=== PATIENT | female | born 1985 | race Caucasian/White ===

== ENCOUNTER → 2016-04-05 | Outpatient (CLI) | payer OTHER ==
[2016-04-05 09:50] LABS: CHCM 34.4; HCT 36.7 % (34.0-46.0); HDW 3.09; HGB 12.4 gm/dL (11.4-16.0); MCH 29.8 pg (25.0-35.0); MCHC 33.9 g/dL (31.0-37.0); MCV 87.9 fL (80.0-100.0); Mean Platelet Volume 6.2; RBC 4.17 m/uL (3.80-5.40); RDW 13.9 % (11.5-15.5); WBC 10.2 k/uL (3.8-10.6)
== END | disposition home or self-care (01) ==
LOC: LABWHC1 08:23
PROVIDERS: ATTEND Obstetrics & Gynecology
DX: Z34.92 Encounter for supervision of normal pregnancy, unspecified, second trimester (principal); Z3A.00 Weeks of gestation of pregnancy not specified
CPT/HCPCS: 36415; 82950; 85027

== ENCOUNTER → 2016-04-11 | Outpatient (CLI) | payer OTHER ==
[2016-04-11 12:40] LABS: Glucose 3 Hour, Gest 96 mg/dL
== END | disposition home or self-care (01) ==
LOC: LABWHC1 08:24
PROVIDERS: ATTEND Obstetrics & Gynecology
DX: O24.419 Gestational diabetes mellitus in pregnancy, unspecified control (principal); Z3A.00 Weeks of gestation of pregnancy not specified
CPT/HCPCS: 36415; 82951; 82952

== ENCOUNTER 2016-05-30 15:08 | Outpatient (CLI) | payer OTHER ==
[2016-05-30 15:55] LABS: Appearance,Urine Cloudy (Clear); Bacteria,Urine Occasional /hpf; Bilirubin,Urine Negative (Negative); Glucose,Urine (UA) Negative (Negative); Ketones,Urine Negative (Negative); Leukocyte Esterase,Urine Moderate (Negative); Mucus,Urine Rare /hpf; Nitrite,Urine Negative (Negative); PH, Urine 6.5 (5.0-8.0); Particle Count 9996; Protein,Urine 1+ (Negative); RBC,Urine 2 /hpf (0-5); Squamous Epithelial Cell,Urine 13 /hpf (0-4); UA Billing (MACRO vs. MICRO) MICRO; WBC,Urine 11 /hpf (0-5)
--- NOTE | 2016-05-30 17:12 | US ---
EXAMINATION TYPE: US OB >= 14 wk fetus DATE OF EXAM: 05/30/2016 4:47 PM COMPARISON: on PACS CLINICAL HISTORY: vaginal bleeding spotting TECHNIQUE: Transabdominal (TA) GESTATIONAL AGE / DATING Dates by First Scan: (32 weeks/6 days) EDC: 07/19/2016 Dates by Current Scan: (31 weeks/6 days) EDC: 07/26/2016 SURVEY IUP: Single PLACENTA: Anterior PREVIA: No Previa KELSEY: 15.9 cm Normal CERVICAL LENGTH (transabdominal: norm > 3.0cm): 3.4 cm BIOMETRY PRESENTATION: Vertex LIE: Longitudinal BPD: 8.4 cm 33 weeks / 5 days HC: 31.0 cm 34 weeks / 4 days AC: 28.2 cm 32 weeks / 1 days FL: 5.8 cm 30 weeks / 1 days ESTIMATED WEIGHT IN GRAMS: 1869 grams ESTIMATED WEIGHT IN LBS/OZS: 4 lbs. 2 oz. WEIGHT PERCENTAGE BASED ON ESTABLISHED DATES: 16.5% HC/AC: 1.1 FL/AC: 20.5 HEART RATE: 131 bpm RHYTHM: Normal TECHNOLOGIST IMPRESSION: Live IUP measuring 31 weeks 6 days. IMPRESSION: Allowing for error of measurement there is satisfactory growth compared to 02/09/2016. I see no compli cating process.
== END 2016-05-30 16:58 | disposition home or self-care (01) ==
LOC: FBPOP 15:08
PROVIDERS: ATTEND Obstetrics & Gynecology
DX: O26.893 Other specified pregnancy related conditions, third trimester (principal); Z3A.32 32 weeks gestation of pregnancy; N93.9 Abnormal uterine and vaginal bleeding, unspecified
CPT/HCPCS: 59025; 81001; 76805; G0463; 99213

== ENCOUNTER 2016-07-02 10:42 | Inpatient (IN) | payer OTHER ==
[2016-07-02] MEDS ORDERED: CITRIC ACID-SODIUM CITRATE 15 ML CUP PO ONE (11:26)
[2016-07-02] MEDS ORDERED: ceFAZolin 2 GM in SODIUM CHLORIDE 0.9% 100 ML IVPB ONE (11:26)
--- NOTE | 2016-07-02 11:35 | P.HPOB ---
History of Present Illness H&P Date: 07/02/16 Chief Complaint: elevated dopplers, variables on NST 29 presented to triage at 37 weeks 2 days for NST. She has been followed with [facility] for her gestational diabetes A1. Her Dopplers were starting to be elevated and so she was followed more closely. NST today shows heart tones to be 125 - 130 with moderate variability and reactive but there are some variable decelerations to the 100s lasting about 40 seconds good return to baseline. The maternal medicine specialist had recommended delivery between 37 and 38 weeks. There is no reason to wait considering the variables on the heart rate strip so we will plan for section for today. Review of Systems All systems: negative Constitutional: Denies chills, Denies fever Eyes: denies blurred vision, denies pain Ears, nose, mouth and throat: Denies headache, Denies sore throat Cardiovascular: Denies chest pain, Denies shortness of breath Respiratory: Denies cough Gastrointestinal: Denies abdominal pain, Denies diarrhea, Denies nausea, Denies vomiting Genitourinary: Denies dysuria, Denies hematuria Musculoskeletal: Denies myalgias Integumentary: Denies pruritus, Denies rash Neurological: Denies numbness, Denies weakness Psychiatric: Denies anxiety, Denies depression Endocrine: Denies fatigue, Denies weight change Past Medical History Past Medical History: No Reported History Additional Past Medical History / Comment(s): Obstetrics history: She has had one previous section. This she has been followed with me since her first trimester and with M since the second trimester due to gestational diabetes. History of Any Multi-Drug Resistant Organisms: None Reported Past Surgical History: Section Past Psychological History: Anxiety Smoking Status: Former smoker Past Alcohol Use History: None Reported Past Drug Use History: None Reported Medications and Allergies Home Medications Medication Instructions Recorded Confirmed Type Pnv with Ca,No.72/Iron/FA 1 tab PO DAILY 12/08/15 05/30/16 History [ Plus Tablet] Allergies Allergy/AdvReac Type Severity Reaction Status Date / Time No Known Allergies Allergy Verified 05/30/16 15:20 Exam Osteopathic Statement: *. No significant issues noted on an osteopathic structural exam other than those noted in the History and Physical/Consult. - Vital Signs Vital signs: Intake and Output 07/01/16 07/02/16 07/02/16 22:59 06:59 14:59 Other: Weight 89.811 kg Patient Weight 07/03/16 06:59 Weight 89.811 kg Heart: Regular rate and rhythm Lungs: Clear to auscultation bilaterally Abdomen: Soft, nontender Extremities: Negative Homans sign Assessment and Plan (1) Gestational diabetes mellitus, class A1 Status: Acute (2) Non-reassuring heart tones complicating , antepartum Status: Acute (3) Family planning Status: Acute (4) Previous section Status: Acute Plan: 1. Plan for repeat section with tubal ligation
[2016-07-02 12:21] LABS: Glucose,Whole Blood 78 mg/dL (75-99)
[2016-07-02 12:38] VITALS: BMI 37.4
[2016-07-02 13:17] LABS: Basophils % (A) 0 %; CH 28.8; CHCM 33.7; Eosinophils % (A) 0 %; HCT 37.7 % (34.0-46.0); HDW 3.09; HGB 12.4 gm/dL (11.4-16.0); Luc # (Auto) 0.26; Luc % (Auto) 3; Lymphocytes # (A) 1.2 k/uL (1.0-4.8); Lymphocytes % (A) 15 %; MCH 28.1 pg (25.0-35.0); MCHC 32.8 g/dL (31.0-37.0); MCV 85.7 fL (80.0-100.0); Mean Platelet Volume 7.1; Monocytes # (A) 0.4 k/uL (0-1.0); Monocytes % (A) 5 %; Neutrophils # (A) 5.9 k/uL (1.3-7.7); Neutrophils % (A) 76 %; RBC 4.39 m/uL (3.80-5.40); RDW 14.5 % (11.5-15.5); WBC 7.8 k/uL (3.8-10.6); WBC (Perox) 8.06
[2016-07-02] MEDS: LACTATED RINGERS 1,000 ML IV SCH ×3 (13:49→23:32)
[2016-07-02] MEDS ORDERED: KETOROLAC 30 MG/ML 1 ML VIAL ONE (14:31)
[2016-07-02] MEDS ORDERED: ONDANSETRON 4 MG/2 ML VIAL ONE (14:31)
[2016-07-02] MEDS ORDERED: ePHEDrine 50 MG/ML 1 ML AMP ONE (14:31)
[2016-07-02] MEDS ORDERED: MORPHINE SULFATE (PF) 0.3 MG/0.3 ML SYR ONE (14:31)
[2016-07-02] MEDS ORDERED: OXYTOCIN 10 UNIT/ML 1 ML VIAL IM ONE (14:31)
[2016-07-02] MEDS ORDERED: NALBUPHINE 10 MG/ML AMPUL ONE (14:31)
[2016-07-02] MEDS ORDERED: diphenhydrAMINE 50 MG/ML 1 ML VIAL IVP PRN ×3 (15:09→15:18)
[2016-07-02] MEDS ORDERED: ONDANSETRON 4 MG/2 ML VIAL IVP PRN ×2 (15:09→15:18)
[2016-07-02] MEDS ORDERED: MORPHINE SULFATE 4 MG/ML SYRINGE IVP PRN (15:09)
[2016-07-02] MEDS ORDERED: NALOXONE 0.4 MG/ML 1 ML VIAL IV PRN (15:09)
[2016-07-02] MEDS ORDERED: KETOROLAC 30 MG/ML 1 ML VIAL IVP PRN (15:09)
[2016-07-02] MEDS ORDERED: ACETAMINOPHEN TAB 325 MG TAB PO PRN (15:18)
[2016-07-02] MEDS ORDERED: diphenhydrAMINE 50 MG CAP PO PRN (15:18)
[2016-07-02] MEDS ORDERED: Acetaminophen-Codeine 300-30mg TAB PO PRN ×2 (15:18)
[2016-07-02] MEDS ORDERED: METOCLOPRAMIDE 5 MG/ML 2 ML VIAL IVP PRN (15:18)
[2016-07-02] MEDS ORDERED: SIMETHICONE 80 MG CHEWABLE PO PRN (15:18)
[2016-07-02] MEDS ORDERED: ZOLPIDEM 5 MG TAB PO PRN (15:18)
[2016-07-02] MEDS ORDERED: diphenhydrAMINE 25 MG CAP PO PRN (15:18)
[2016-07-02] MEDS ORDERED: LANOLIN CREAM 5 GM TUBE TOPICAL PRN (15:18)
--- NOTE | 2016-07-02 15:28 | P.OP ---
Date of Procedure: 07/02/16 Preoperative Diagnosis: 1. at 37 weeks and 4 days 2. Previous section 3. Family planning 4. Increased Dopplers 5. Gestational hypertension 6. Gestational diabetes A1 7. Variable decelerations on heart rate tracing Postoperative Diagnosis: 1. at 37 weeks and 4 days 2. Previous section 3. Family planning 4. Increased Dopplers 5. Gestational hypertension 6. Gestational diabetes A1 7. Variable decelerations on heart rate tracing Procedure(s) Performed: Repeat low transverse with tubal ligation Anesthesia: spinal Surgeon: Nany Sandhu Ocular Care Technician #1: Ildefonso Gallardo Estimated Blood Loss (ml): 600 IV fluids (ml): 600 Urine output (ml): 500 Pathology: other (Placenta) Condition: stable Disposition: floor Operative Findings: Viable male, Apgars 8, 9, weight 6 lbs. 2 oz. (2770 g) Description of Procedure: Patient was taken to the operating room where spinal anesthesia was found be adequate. She did have a vagal reaction after the spinal which resulted in a fast heart rate at first and then a low heart rate, tingling in her fingers, and inability to hear. This was a transient event that lasted approximately 45 seconds. She was prepped and draped in normal sterile fashion in dorsal supine position with a leftward tilt. Pfannenstiel skin incision was made the scalpel and carried through to the underlying layer of fascia with the scalpel. Fascia was incised in midline and carried bilaterally with the Leung scissors. The superior aspect of the fascial incision was grasped with Brando clamps elevated and the underlying rectus muscles dissected off with the Leung's. Attention was then turned to inferior aspect of same incision which in a similar fashion was grasped tented up and the underlying rectus muscles dissected off with the Leung' s. The rectus muscles were the midline and the peritoneum was identified tented up and entered sharply with the scalpel. The incision was extended superiorly and inferiorly with good visualization of the bladder. The bladder blade was inserted and the vesicouterine peritoneum was incised the Metzenbaums then carried bilaterally and bladder flap created digitally. A low transverse incision was then made on the uterus with the scalpel. This was carried bilaterally and digital manner. Infant's head delivered atraumatically , nose and mouth bulb suctioned, cord clamped and cut, handed off to waiting nurses. Apgars 8,9, weight 6 lbs. 2 oz. Placenta delivered manually, intact with three-vessel cord. The uterus is exteriorized and cleared of all clots and debris. The uterine incision was closed with 0 Vicryl in a running locked fashion. Second layer of the same sutures used in imbricating fashion to obtain excellent hemostasis. Both ovaries and tubes appeared normal. The left fallopian tube was grasped with hemostat and a window was made in the mesosalpinx with the Bovie. The left fallopian tube was doubly ligated with 0 Vicryl and a section was removed. The pedicles were then cauterized with the Bovie. The right fallopian tube was grasped with a hemostat a window was made in the mesosalpinx with the Bovie. The right fallopian tube was doubly ligated with 0 Vicryl and a section was removed. The pedicles were cauterized with the Bovie. The uterus was placed back into the abdomen. The peritoneum was reapproximated using 2-0 Vicryl in a running fashion. The muscles were reapproximated using 2-0 Vicryl in interrupted fashion. The fascia was reapproximated using 0 Vicryl in a running fashion. The subcutaneous tissue was closed with 3-0 Vicryl running fashion. The skin was closed meliton. Patient tolerated the procedure well, sponge and instrument counts were correct times 2 and she was taken to the recovery room in stable condition.
[2016-07-02] MEDS ORDERED: OXYTOCIN 30 UNITS/500 ML NS 30 UNIT in SALINE 1 500ML.BAG IV SCH (15:30)
[2016-07-02] MEDS: SENNOSIDES-DOCUSATE SODIUM 1 EACH TAB PO SCH (23:32)
[2016-07-03] MEDS: LACTATED RINGERS 1,000 ML IV SCH ×2 (01:05→04:22)
--- NOTE | 2016-07-03 04:14 | P.PNOBGPC ---
Subjective - Subjective Principal diagnosis: Status post repeat low transverse and tubal ligation postop day#1 Interval history: Patient seen and examined. Denies nausea, vomiting, chest pain, shortness of breath or calf pain. Not able to void yet but ambulating normally. Patient reports: Reports appetite normal, Reports pain well controlled, Reports ambulating normally [place]: doing well Objective - Vital Signs Latest vital signs: Vital Signs Temp Pulse Resp BP Pulse Ox 07/03/16 02:00 17 07/03/16 00:00 97.9 F 64 17 125/78 98 07/02/16 22:00 18 07/02/16 20:09 97 07/02/16 20:00 97.2 F L 81 17 132/73 97 07/02/16 17:30 98.0 F 103 H 16 150/72 07/02/16 17:00 71 16 149/70 07/02/16 16:30 97.9 F 84 16 162/42 07/02/16 16:15 66 16 160/76 07/02/16 16:09 99 07/02/16 16:00 91 16 137/87 07/02/16 15:45 97.2 F L 77 16 142/67 07/02/16 15:30 98.0 F 78 16 156/70 07/02/16 15:09 16 98 07/02/16 12:28 98.5 F 89 16 138/72 Intake and Output 07/02/16 07/02/16 07/03/16 14:59 22:59 06:59 Intake Total 1000 Output Total 950 Balance 1000 -950 Intake: Intake, IV Titration 1000 Amount Lactated Ringers 1,000 ml 1000 @ 125 mls/hr IV .Q8H [facility] Rx#:[id number] Output: Urine 950 Uretheral (Johnson) 100 Other: Voiding Method Indwelling Catheter # Voids 0 Weight 89.811 kg Patient Weight 07/03/16 06:59 Weight 89.811 kg - Exam Lungs: bilateral: normal Chest: Normal S1, Normal S2 Extremities: Present: normal Abdomen: Present: normal appearance, soft. Absent: distention, tenderness Incision: Present: normal, dry, intact Uterus: Present: normal, firm Assessment and Plan (1) Gestational diabetes mellitus, class A1 Current Visit: Yes Status: Acute Code(s): O24.410 - GESTATIONAL DIABETES MELLITUS IN , DIET CONTROLLED SNOMED Code(s): 99592831 (2) Non-reassuring heart tones complicating , antepartum Current Visit: Yes Status: Resolved Code(s): O36.8990 - MATERNAL CARE FOR OTH PROBLEMS, UNSP TRIMESTER, UNSP SNOMED Code(s): 920660178 (3) Family planning Current Visit: Yes Status: Resolved Code(s): Z30.09 - ENCOUNTER FOR OTH GENERAL CNSL AND ADVICE ON CONTRACEPTION SNOMED Code(s): 74114127 (4) Previous section Current Visit: Yes Status: Resolved Code(s): Z98.891 - HISTORY OF UTERINE SCAR FROM PREVIOUS SURGERY SNOMED Code(s): 153529806 (5) Status post repeat low transverse section Narrative/Plan: 1. Pain control 2. Increase ambulation 3. Keep trying to void and if no voiding by 6 hours may need straight cath. Current Visit: Yes Status: Acute Code(s): Z98.891 - HISTORY OF UTERINE SCAR FROM PREVIOUS SURGERY SNOMED Code(s): 529699362 (6) Status post tubal ligation at time of delivery, current hosp Current Visit: Yes Status: Acute Code(s): O80 - ENCOUNTER FOR FULL-TERM UNCOMPLICATED DELIVERY; Z30.2 - ENCOUNTER FOR STERILIZATION SNOMED Code(s): 048694645
--- NOTE | 2016-07-03 07:29 | P.CON ---
Consult Note - . Assessment/Plan:: status post spinal duramorph doing ok; no complaints
[2016-07-03 08:25] LABS: Basophils % (A) 0 %; CH 28.6; CHCM 33.3; Eosinophils % (A) 0 %; HCT 30.5 % (34.0-46.0); HDW 3.08; Luc # (Auto) 0.19; Luc % (Auto) 2; Lymphocytes % (A) 12 %; MCHC 32.5 g/dL (31.0-37.0); MCV 86.4 fL (80.0-100.0); Mean Platelet Volume 6.7; Monocytes # (A) 0.4 k/uL (0-1.0); Monocytes % (A) 5 %; Neutrophils # (A) 6.2 k/uL (1.3-7.7); Neutrophils % (A) 80 %; RBC 3.53 m/uL (3.80-5.40); RDW 14.7 % (11.5-15.5); WBC 7.8 k/uL (3.8-10.6); WBC (Perox) 8.09
[2016-07-03 08:49] LABS: HGB 9.9 gm/dL (11.4-16.0)
[2016-07-03] MEDS: SENNOSIDES-DOCUSATE SODIUM 1 EACH TAB PO SCH ×2 (17:18→21:08)
[2016-07-03] MEDS: IBUPROFEN 600 MG TAB PO PRN (23:44)
[2016-07-04] MEDS: SENNOSIDES-DOCUSATE SODIUM 1 EACH TAB PO SCH (07:38)
[2016-07-04 07:57] VITALS: BP 121/70; PULSE 70; RESP 20; TEMP 98.3
[2016-07-04] MEDS: IBUPROFEN 600 MG TAB PO PRN (12:10)
--- NOTE | 2016-07-04 12:40 | P.DS ---
Providers Date of admission: 07/02/16 15:49 Expected date of discharge: 07/04/16 Attending physician: Nany Sandhu Primary care physician: Nany Sandhu - Discharge Diagnosis(es) (1) Gestational diabetes mellitus, class A1 Current Visit: Yes Status: Acute (2) Non-reassuring heart tones complicating , antepartum Current Visit: Yes Status: Resolved (3) Family planning Current Visit: Yes Status: Resolved (4) Previous section Current Visit: Yes Status: Resolved (5) Status post repeat low transverse section Current Visit: Yes Status: Acute (6) Status post tubal ligation at time of delivery, current hosp Current Visit: Yes Status: Acute Hospital Course: Patient presented to the hospital for a nonstress test she was 37 weeks and 4 days. On her nonstress test and did have moderate variability and was reactive but there were some variable decelerations. The NST was 4 elevated Dopplers found at [facility] where she was getting them due to gestational diabetes. She was also diagnosed at that visit with gestational hypertension. She underwent a repeat low transverse with tubal ligation. Her postoperative course was uncomplicated. She denies nausea, vomiting, chest pain, shortness of breath or calf pain. Her blood pressures have been normal. She'll be discharged home postoperative day #2 in stable condition to follow-up with me in one week. Plan - Discharge Summary New Discharge Prescriptions: Acetaminophen-Codeine 300-30mg [Tylenol w/codeine #3] 2 each PO Q4HR PRN #30 tab PRN Reason: Moderate To Severe Pain Ibuprofen [Motrin] 600 mg PO Q6HR PRN #30 tab PRN Reason: Mild Pain Or Fever >= 100.5 Discharge Medication List Pnv with Ca,No.72/Iron/FA [ Plus Tablet] 1 tab PO DAILY 12/08/15 [ History] Acetaminophen-Codeine 300-30mg [Tylenol w/codeine #3] 2 each PO Q4HR PRN #30 tab 07/04/16 [Rx] Ibuprofen [Motrin] 600 mg PO Q6HR PRN #30 tab 07/04/16 [Rx] Follow up Appointment(s)/Referral(s): Nany Sandhu DO [Primary Care Provider] - 1 Week Discharge Disposition: HOME SELF-CARE
== END 2016-07-04 14:25 | disposition home or self-care (01) | DRG 766 ==
LOC: FBPOP 10:42 → 4FBP 12:12 → FBPOP 15:15 → 4FBP 15:49
PROVIDERS: ADMIT Obstetrics & Gynecology; ATTEND Obstetrics & Gynecology
PROC: 0UB70ZZ Excision of Bilateral Fallopian Tubes, Open Approach (ICD-10-PCS; 2016-07-02)
PROC: 10D00Z1 Extraction of Products of Conception, Low, Open Approach (ICD-10-PCS; principal; 2016-07-02 14:30)
DX: O76 Abnormality in fetal heart rate and rhythm complicating labor and delivery (principal); O24.420 Gestational diabetes mellitus in childbirth, diet controlled; O34.211 Maternal care for low transverse scar from previous cesarean delivery; Z37.0 Single live birth; Z3A.37 37 weeks gestation of pregnancy; Z30.2 Encounter for sterilization; N85.8 Other specified noninflammatory disorders of uterus; Z86.59 Personal history of other mental and behavioral disorders; Z87.891 Personal history of nicotine dependence; Z79.899 Other long term (current) drug therapy
CPT/HCPCS: 59025; 85025; 86850; 86900; 86901; 88302; 88307; 99213